=== PATIENT | male | born 1995 | race Caucasian/White ===

== ENCOUNTER 2018-07-03 11:24 | Outpatient (CLI) | payer BC ==
--- NOTE | 2018-07-03 12:45 | Diagnostic Imaging Report ---
Indication: Cough Technique: 2 views of the chest Comparison: None Findings: Lungs and pleural spaces are clear. The heart size is normal. The bones are unremarkable. No significant interim change. Impression: Negative
== END 2018-07-03 13:24 | disposition home or self-care (01) ==
LOC: RAD 11:24
DX: Z87.09 Personal history of other diseases of the respiratory system (principal); R05 Cough
CPT/HCPCS: 71046